=== PATIENT | female | born 1955 | race Caucasian/White ===

== ENCOUNTER 2025-06-12 15:11 | Inpatient (IN) | payer MEDICARE, OTHER ==
[~2025-06-12] VITALS: Ht 167.6 cm; Wt 83.8 kg
[2025-06-12] MEDS ORDERED: QUET200T5 PO (15:58)
[2025-06-12] MEDS ORDERED: MAGN-169 PO (15:58)
[2025-06-12] MEDS ORDERED: ONDA-104 PO (15:58)
[2025-06-12] MEDS ORDERED: LITH300C3 PO (15:58)
[2025-06-12] MEDS ORDERED: HYDR2TAB37 PO (15:58)
[2025-06-12] MEDS ORDERED: MINE133E26 PR (15:58)
[2025-06-12] MEDS ORDERED: HYOS-28 PO (15:58)
[2025-06-12 16:14] LABS: COVID AG,FIA SOURCE NPH
[2025-06-12 16:16] LABS: PLATELET COUNT (AUTO) 391 K/uL (150-450); RED BLOOD CELL COUNT(AUTO) 4.66 MIL/uL (4.00-5.20); RED CELL DISTRIBUTION WIDTH 16.4 % (11.5-14.5); WHITE BLOOD COUNT (AUTO) 6.2 K/uL (4.5-11.0)
[2025-06-12 16:25] LABS: ALCOHOL, BLOOD (SERUM) < 3 mg/dL (0-10)
[2025-06-12 16:26] LABS: CALCIUM, TOTAL 9.5 mg/dL (8.8-10.5); CREATININE 1.39 mg/dL (0.60-1.30); GLOMERULAR FILTR. RATE CALC 38 mL/min (>60); GLUCOSE,RANDOM 104 mg/dL (70-110); SODIUM SERUM 139 mmol/L (136-145); UREA NITROGEN, BLOOD 21 mg/dL (7-18)
[2025-06-12 16:38] LABS: ASPARTATE AMINOTRANSFERASE 12 U/L (15-37); TOTAL PROTEIN, SERUM 6.9 g/dL (6.4-8.2)
[2025-06-12 16:49] LABS: APPEARANCE,URINE CLEAR (CLEAR); GLUCOSE, URINE (UA) NEGATIVE (NEGATIVE); LEUKOCYTE ESTERASE ,URINE NEGATIVE (NEGATIVE); NITRATE,URINE NEGATIVE (NEGATIVE); OCCULT BLOOD,URINE NEGATIVE (NEGATIVE); PH,URINE DRUG SCREEN 7.0 (5.0-8.0); SPECIFIC GRAVITIY, URINE 1.005 (1.003-1.030)
[2025-06-12 16:56] LABS: ALCOHOL, URINE DRUG SCREEN NEGATIVE (NEGATIVE); AMPHET/METH SCREEN,URINE NEGATIVE (NEGATIVE); BARBITURATE SCREEN, URINE NEGATIVE (NEGATIVE); CANNABINOID SCREEN,URINE NEGATIVE (NEGATIVE); COCAINE SCREEN,URINE NEGATIVE (NEGATIVE); METHADONE SCREEN, URINE NEGATIVE (NEGATIVE)
[2025-06-12 17:07] LABS: SARS-COV2 (COVID) ANTIGEN,FIA Negative (Negative)
[2025-06-12] MEDS: ACETAMINOPHEN 325 MG TABLET PO ONE (21:55)
[2025-06-12] MEDS ORDERED: HYOSCYAMINE SULFATE 0.125 MG TAB PO PRN (22:15)
[2025-06-12] MEDS ORDERED: MAGNESIUM HYDROXIDE SUSPENSION 30 ML UDCUP PO PRN (22:15)
[2025-06-12] MEDS ORDERED: MINERAL OIL 133 ML ENEMA PR PRN (22:15)
[2025-06-12] MEDS ORDERED: ONDANSETRON HCL 4 MG/2 ML VIAL IVP PRN (22:15)
[2025-06-12 23:57] VITALS: BP 149/76; PULSE 71; RESP 18; TEMP 97.9; O2SAT 96
[2025-06-13] MEDS: QUEtiapine FUMARATE 200 MG ER TABLET PO SCH ×2 (01:25→20:28)
[2025-06-13] MEDS: LITHIUM CARBONATE 300 MG CAPSULE PO SCH ×2 (01:25→20:28)
[2025-06-13 04:43] VITALS: BP 134/74; PULSE 60; RESP 20; TEMP 97.5; O2SAT 100
[2025-06-13] MEDS: LEVOTHYROXINE SODIUM 50 MCG TABLET PO SCH (06:22)
[2025-06-13 07:33] VITALS: BP 125/77; PULSE 77; RESP 20; TEMP 97.5; O2SAT 95
[2025-06-13] MEDS: ENOXAPARIN SODIUM 40 MG/0.4 ML PF SYRINGE SQ SCH (08:13)
[2025-06-13 19:22] VITALS: BP 131/73; PULSE 75; RESP 18; TEMP 98.2; O2SAT 96
[2025-06-13 23:50] VITALS: BP 134/82; PULSE 68; RESP 20; TEMP 98.2; O2SAT 96
[2025-06-14 04:29] VITALS: BP 116/75; PULSE 73; RESP 18; TEMP 97.7; O2SAT 97
[2025-06-14 07:15] VITALS: BP 133/71; PULSE 91; RESP 18; TEMP 98; O2SAT 97
[2025-06-14 07:20] LABS: PLATELET COUNT (AUTO) 381 K/uL (150-450); RED BLOOD CELL COUNT(AUTO) 5.03 MIL/uL (4.00-5.20); RED CELL DISTRIBUTION WIDTH 16.1 % (11.5-14.5); WHITE BLOOD COUNT (AUTO) 8.4 K/uL (4.5-11.0)
[2025-06-14 07:39] LABS: ASPARTATE AMINOTRANSFERASE 14.0 U/L (15-37); CALCIUM, TOTAL 9.7 mg/dL (8.8-10.5); CHOL/HDL RATIO 3.3 (3.9-5.7); CREATININE 1.14 mg/dL (0.60-1.30); GLOMERULAR FILTR. RATE CALC 47.0 mL/min (>60); GLUCOSE,RANDOM 108.0 mg/dL (70-110); LDL CHOL (CALC.) 137.0 mg/dL (0-130); SODIUM SERUM 138.0 mmol/L (136-145); TOTAL PROTEIN, SERUM 7.8 g/dL (6.4-8.2); UREA NITROGEN, BLOOD 17.0 mg/dL (7-18)
[2025-06-14 15:00] VITALS: BP 125/68; PULSE 63; RESP 18; TEMP 97.9; O2SAT 96
[2025-06-14 19:36] VITALS: BP 112/73; PULSE 62; RESP 17; TEMP 98.4; O2SAT 95
[2025-06-15] MEDS ORDERED: SODIUM CHLORIDE 0.9% 250 ML IV ONE (01:08)
[2025-06-15] MEDS: CefTRIAXone 1 GM/DEXTROSE 50 ML IV SCH (02:10)
[2025-06-15] MEDS: ACETAMINOPHEN 325 MG TABLET PO PRN (02:13)
[2025-06-15 04:24] VITALS: BP 132/73; PULSE 72; RESP 17; TEMP 97.9; O2SAT 95
[2025-06-15 06:33] LABS: PLATELET COUNT (AUTO) 367 K/uL (150-450); RED BLOOD CELL COUNT(AUTO) 5.22 MIL/uL (4.00-5.20); RED CELL DISTRIBUTION WIDTH 16.3 % (11.5-14.5); WHITE BLOOD COUNT (AUTO) 8.9 K/uL (4.5-11.0)
[2025-06-15 06:55] LABS: CALCIUM, TOTAL 9.6 mg/dL (8.8-10.5); CREATININE 1.15 mg/dL (0.60-1.30); GLOMERULAR FILTR. RATE CALC 47.0 mL/min (>60); GLUCOSE,RANDOM 111.0 mg/dL (70-110); SODIUM SERUM 132.0 mmol/L (136-145); UREA NITROGEN, BLOOD 22.0 mg/dL (7-18)
[2025-06-15 07:30] VITALS: BP 122/80; PULSE 71; RESP 18; TEMP 98.1; O2SAT 96
[2025-06-15] MEDS ORDERED: LEVO50 PO ×2 (12:22→12:36)
[2025-06-15] MEDS ORDERED: HALO5TAB23 PO ×2 (12:22→12:40)
[2025-06-15] MEDS ORDERED: QUET-28 PO (12:22)
[2025-06-15] MEDS ORDERED: ATOR10TA PO (12:24)
[2025-06-15] MEDS ORDERED: ATOR20TA PO (12:40)
[2025-06-15] MEDS ORDERED: HYDR2TAB37 PO (12:45)
[2025-06-15 15:25] VITALS: BP 123/73; PULSE 64; RESP 18; TEMP 98.1; O2SAT 96
== END 2025-06-15 20:02 | DRG 177 ==
LOC: EMS 15:11 → EDH 20:47 → 6S 23:50 → 6N 06-13 09:50
PROVIDERS: ADMIT Family Medicine; ATTEND Family Medicine
PROC: GZ58ZZZ Individual Psychotherapy, Cognitive-Behavioral (ICD-10-PCS; principal; 2025-06-13)
PROC: GZ56ZZZ Individual Psychotherapy, Supportive (ICD-10-PCS; 2025-06-13)
DX: J69.0 Pneumonitis due to inhalation of food and vomit (principal); J96.01 Acute respiratory failure with hypoxia; F03.93 Unspecified dementia, unspecified severity, with mood disturbance; F31.5 Bipolar disorder, current episode depressed, severe, with psychotic features; F03.911 Unspecified dementia, unspecified severity, with agitation; G40.909 Epilepsy, unspecified, not intractable, without status epilepticus; G89.4 Chronic pain syndrome; Z20.822 Contact with and (suspected) exposure to COVID-19; E03.9 Hypothyroidism, unspecified; Z66 Do not resuscitate; E78.00 Pure hypercholesterolemia, unspecified; F41.9 Anxiety disorder, unspecified; M10.9 Gout, unspecified; Z88.8 Allergy status to other drugs, medicaments and biological substances; Z51.5 Encounter for palliative care; E11.42 Type 2 diabetes mellitus with diabetic polyneuropathy
CPT/HCPCS: 71045; 76536; 80048; 80053; 80061; 80307; 81003; 83036; 83735; 84443; 85025; 87081; 99285; G0480; J0696; J1650; J7050; 36415-L1; 36415-TC